=== PATIENT | female | born 1980 | race African-American/Black ===

== ENCOUNTER → 2017-01-29 | Outpatient (CLI) | payer MEDICAID | LOC: FIMAGING 12:47 | PROVIDERS: ATTEND Obstetrics & Gynecology | DX: O09.291 Supervision of pregnancy with other poor reproductive or obstetric history, first trimester (principal); O10.011 Pre-existing essential hypertension complicating pregnancy, first trimester; O24.111 Pre-existing type 2 diabetes mellitus, in pregnancy, first trimester; O99.211 Obesity complicating pregnancy, first trimester; Z87.59 Personal history of other complications of pregnancy, childbirth and the puerperium; Z3A.12 12 weeks gestation of pregnancy ==

== ENCOUNTER 2017-02-18 20:35 | Emergency (ER) | payer MEDICAID ==
[2017-02-18 20:47] VITALS: RESP 16; TEMP 98.4; O2SAT 98
--- NOTE | 2017-02-18 21:15 | EDPHY ---
H & P Stated Complaint: HTN 15 weeks Time Seen by Provider: 02/18/17 20:57 HPI/ROS: CHIEF COMPLAINT: High blood pressure, headache HISTORY OF PRESENT ILLNESS: This is a 36-year-old G11 P 4 SAB 6 who is 15 weeks . She has a history of hypertension and diabetes. She presents tonight concerned about headache and high blood pressure. She has been experiencing headache over the past 3 days. She describes it as global. She took Tylenol today and her headache is currently mild. She is taking Nifedipine ER 30 mg every morning for hypertension--she missed 1 dose 2 days ago. The today while experiencing headache she checked her blood pressure and it was 170/110. She is taking insulin for her diabetes which was diagnosed last year. Her blood sugars typically run 100-130. She has not noticed lower extremity edema. She denies recent fever, cough, shortness of breath. She has not had vaginal bleeding, cramping, or dysuria. Her purchasing specialist is Dr. Zoey Moore at [facility]. REVIEW OF SYSTEMS: A ten point review of systems was performed and is negative with the exception of the items mentioned in the HPI. 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 She is accompanied by her . - Physical Exam Exam: General Appearance: Alert. Vital signs reviewed. Heart rate 110, blood pressure 153/92 at triage. Eyes: Pupils equal and round, no conjunctival injection, no discharge. Anicteric. ENT, Mouth: Mucous membranes are moist, no oropharyngeal erythema or edema. Neck: No lymphadenopathy, supple. Respiratory: Lungs are clear to auscultation; no wheezes, rales, or rhonchi. Cardiovascular: Regular rate and rhythm; no murmur, rub, or gallop. Gastrointestinal: Abdomen is soft and nontender, gravid, no masses or organomegaly, bowel sounds normal. Skin: Warm and dry, no rashes on exposed skin, normal color. Back: Nontender to palpation over the thoracolumbar spine. No CVAT. Extremities: No lower extremity edema, no calf tenderness or swelling. Neurological: Alert and oriented. Moving all four extremities easily and equally. IRASEMA. EOMI. Facial expression symmetric. Tongue midline. Deep tendon reflexes are 2+ in the biceps and knees bilaterally. Psychiatric: Normal affect. Constitutional: Initial Vital Signs Temperature (C) 36.9 C 02/18/17 20:45 Heart Rate 110 H 02/18/17 20:45 Respiratory Rate 16 02/18/17 20:45 Blood Pressure 153/92 H 02/18/17 20:45 O2 Sat (%) 98 02/18/17 20:45 O2 Delivery Mode Room Air Allergies/Adverse Reactions: bee venom protein (honey bee) Allergy (Verified 02/18/17 20:44) lisinopril Allergy (Verified 02/18/17 20:44) losartan Allergy (Verified 02/18/17 20:44) red snapper Allergy (Uncoded 02/18/17 20:44) Home Medications: Medication Instructions Recorded Aspirin 02/18/17 FOLIC ACID 02/18/17 Fish Oil 02/18/17 Humulin N 02/18/17 Nifedipine 02/18/17 02/18/17 Tylenol 02/18/17 novoLOG 02/18/17 Medical Decision Making ED Course/Re-evaluation: Labs have been reviewed. Liver functions are normal. There is no protein in her urine. I would not expect preeclampsia at this stage of and physical exam is not suggestive of preeclampsia--no edema, normal deep tendon reflexes. heart tones 160s. At 10:15 p.m. she was re-examined. Her blood pressure is 118/72 now. Her headache is gone. I spoke with Dr. clay who agrees that no further emergency department care as needed. The patient will contact Dr. Donohue's office tomorrow morning to discuss possible adjustments in her blood pressure medication. Differential Diagnosis: I considered a differential diagnosis that includes but is not limited to uncontrolled essential hypertension, hypertensive urgency, hypertensive emergency, preeclampsia, HELLP. - Data Points Laboratory Results: Laboratory Results 02/18/17 21:30 02/18/17 21:30 02/18/17 02/18/17 02/18/17 21:30 21:30 20:50 WBC 7.13 10^3/uL 10^3/uL (3.80-9.50) RBC 4.54 10^6/uL 10^6/uL (4.18-5.33) Hgb 10.6 g/dL L g/dL (12.6-16.3) Hct 33.2 % L % (38.0-47.0) MCV 73.1 fL L fL (81.5-99.8) MCH 23.3 pg L pg (27.9-34.1) MCHC 31.9 g/dL L g/dL (32.4-36.7) RDW 13.2 % % (11.5-15.2) Plt Count 230 10^3/uL 10^3/uL (150-400) MPV 9.8 fL fL (8.7-11.7) Neut % (Auto) 60.8 % % (39.3-74.2) Lymph % (Auto) 31.1 % % (15.0-45.0) [place] % (Auto) 6.3 % % (4.5-13.0) Eos % (Auto) 1.0 % % (0.6-7.6) Baso % (Auto) 0.1 % L % (0.3-1.7) Nucleat RBC Rel Count 0.0 % % (0.0-0.2) Absolute Neuts (auto) 4.33 10^3/uL 10^3/uL (1.70-6.50) Absolute Lymphs (auto) 2.22 10^3/uL 10^3/uL (1.00-3.00) Absolute Monos (auto) 0.45 10^3/uL 10^3/uL (0.30-0.80) Absolute Eos (auto) 0.07 10^3/uL 10^3/uL (0.03-0.40) Absolute Basos (auto) 0.01 10^3/uL L 10^3/uL (0.02-0.10) Absolute Nucleated RBC 0.00 10^3/uL 10^3/uL (0-0.01) Immature Gran % 0.7 % % (0.0-1.1) Immature Gran # 0.05 10^3/uL 10^3/uL (0.00-0.10) Sodium 132 mEq/L L mEq/L (134-144) Potassium 3.9 mEq/L mEq/L (3.5-5.2) Chloride 101 mEq/L mEq/L (97-110) Carbon Dioxide 22 mEq/l mEq/l (22-31) Anion Gap 9 mEq/L mEq/L (8-16) BUN 8 mg/dL mg/dL (7-23) Creatinine 0.6 mg/dL mg/dL (0.6-1.0) Estimated GFR > 60 Glucose 108 mg/dL H mg/dL (70-100) Calcium 9.7 mg/dL mg/dL (8.5-10.4) Total Bilirubin 0.6 mg/dL mg/dL (0.1-1.4) Conjugated Bilirubin 0.4 mg/dL mg/dL (0.0-0.5) Unconjugated Bilirubin 0.2 mg/dL mg/dL (0.0-1.1) AST 10 IU/L L IU/L (14-46) ALT 21 IU/L IU/L (9-52) Alkaline Phosphatase 33 IU/L L IU/L (38-126) Total Protein 6.3 g/dL g/dL (6.3-8.2) Albumin 3.7 g/dL g/dL (3.5-5.0) Urine Color YELLOW Urine Appearance CLEAR Urine pH 7.0 (5.0-7.5) Ur Specific [place] 1.010 (1.002-1.030) Urine Protein NEGATIVE (NEGATIVE) Urine Ketones NEGATIVE (NEGATIVE) Urine Blood NEGATIVE (NEGATIVE) Urine Nitrate NEGATIVE (NEGATIVE) Urine Bilirubin NEGATIVE (NEGATIVE) Urine Urobilinogen NEGATIVE EU EU (0.2-1.0) Ur Leukocyte Esterase NEGATIVE (NEGATIVE) Urine RBC 1-3 /hpf /hpf (0-3) Urine WBC 1-3 /hpf /hpf (0-3) Ur Epithelial Cells TRACE /lpf /lpf (NONE-1+) Urine Bacteria TRACE /hpf H /hpf (NONE SEEN) Urine Mucus TRACE /lpf /lpf (NONE-1+) Urine Glucose NEGATIVE (NEGATIVE) Departure - Departure Disposition: Home, Routine, Self-Care Clinical Impression: Second trimester Hypertension Qualifiers: Hypertension type: essential hypertension Qualified Code(s): I10 - Essential ( primary) hypertension Condition: Good Instructions: Hypertension (ED) Additional Instructions: Call Dr. Donohue's office tomorrow morning--she might want to adjust your blood pressure medication. Check your blood pressure in the morning. Continue your prescribed medications. Return if you experience severe unremitting headache, any new or concerning symptoms. Referrals: Janae Scherer CNP [Primary Care Provider] - As per Instructions Brissa Donohue MD [Medical Doctor] - As per Instructions
[2017-02-18 21:23] LABS: BACTERIA TRACE /hpf (NONE SEEN); MUCUS TRACE /lpf (NONE-1+)
[2017-02-18 21:43] LABS: COLOR YELLOW; LEUKOCYTE ESTERASE,URINE NEGATIVE (NEGATIVE); NITRITE,URINE NEGATIVE (NEGATIVE)
[2017-02-18 21:49] LABS: % IMMATURE GRANULYOCYTES 0.7 % (0.0-1.1); ABSOLUTE IMMATURE GRANULOCYTES 0.05 10^3/uL (0.00-0.10); ADD DIFF? NO; ADD MORPH? NO; ADD SCAN? NO; ATYPICAL LYMPHOCYTE FLAG 0 (0-99); FRAGMENT RBC FLAG 0 (0-99); HEMATOCRIT 33.2 % (38.0-47.0); HEMOGLOBIN 10.6 g/dL (12.6-16.3); LEFT SHIFT FLG 10 (0-99); LIPEMIA HEMOLYSIS FLAG 80 (0-99); MEAN CELL HEMOGLOBIN 23.3 pg (27.9-34.1); MEAN CELL HEMOGLOBIN CONCENTR. 31.9 g/dL (32.4-36.7); MEAN CELL VOLUME 73.1 fL (81.5-99.8); MEAN PLATELET VOLUME 9.8 fL (8.7-11.7); PLATELET CLUMPS FLAG 0 (0-99); PLATELET COUNT 230 10^3/uL (150-400); RED BLOOD CELL COUNT 4.54 10^6/uL (4.18-5.33); RED CELL DISTRIBUTION WIDTH 13.2 % (11.5-15.2)
[2017-02-18 22:02] LABS: ALANINE AMINOTRANSFERASE 21 IU/L (9-52); ALBUMIN 3.7 g/dL (3.5-5.0); ALKALINE PHOSPHATASE 33 IU/L (38-126); ANION GAP 9 mEq/L (8-16); ASPARTATE AMINOTRANSFERASE 10 IU/L (14-46); BILIRUBIN,TOTAL 0.6 mg/dL (0.1-1.4); BILIRUBIN-CONJUGATED 0.4 mg/dL (0.0-0.5); BILIRUBIN-UNCONJUGATED 0.2 mg/dL (0.0-1.1); CALCIUM 9.7 mg/dL (8.5-10.4); CARBON DIOXIDE 22 mEq/l (22-31); CHLORIDE 101 mEq/L (97-110); CREATININE 0.6 mg/dL (0.6-1.0); GLOMERULAR FILTRATION RATE > 60; GLUCOSE 108 mg/dL (70-100); POTASSIUM 3.9 mEq/L (3.5-5.2); SODIUM 132 mEq/L (134-144); TOTAL PROTEIN 6.3 g/dL (6.3-8.2)
[2017-02-18 22:14] VITALS: BP 118/72; PULSE 97
== END 2017-02-18 22:40 | disposition home or self-care (01) ==
DX: O10.912 Unspecified pre-existing hypertension complicating pregnancy, second trimester (principal); E11.9 Type 2 diabetes mellitus without complications; Z3A.15 15 weeks gestation of pregnancy; Z79.4 Long term (current) use of insulin; Z79.82 Long term (current) use of aspirin

== ENCOUNTER → 2017-03-19 | Outpatient (CLI) | payer MEDICAID | LOC: FIMAGING 07:36 | PROVIDERS: ATTEND Obstetrics & Gynecology | DX: O10.012 Pre-existing essential hypertension complicating pregnancy, second trimester (principal); O24.112 Pre-existing type 2 diabetes mellitus, in pregnancy, second trimester; O26.22 Pregnancy care for patient with recurrent pregnancy loss, second trimester; O09.292 Supervision of pregnancy with other poor reproductive or obstetric history, second trimester; O09.522 Supervision of elderly multigravida, second trimester; O99.212 Obesity complicating pregnancy, second trimester; E11.9 Type 2 diabetes mellitus without complications; E66.9 Obesity, unspecified; Z79.4 Long term (current) use of insulin; Z3A.19 19 weeks gestation of pregnancy ==

== ENCOUNTER → 2017-04-16 | Outpatient (CLI) | payer MEDICAID | LOC: FIMAGING 08:25 | PROVIDERS: ATTEND Obstetrics & Gynecology | DX: O09.522 Supervision of elderly multigravida, second trimester (principal); O24.012 Pre-existing type 1 diabetes mellitus, in pregnancy, second trimester; Z3A.23 23 weeks gestation of pregnancy; O10.912 Unspecified pre-existing hypertension complicating pregnancy, second trimester; O09.292 Supervision of pregnancy with other poor reproductive or obstetric history, second trimester ==

== ENCOUNTER → 2017-05-14 | Outpatient (CLI) | payer MEDICAID | LOC: FIMAGING 08:39 | PROVIDERS: ATTEND Obstetrics & Gynecology | DX: O09.292 Supervision of pregnancy with other poor reproductive or obstetric history, second trimester (principal); O24.112 Pre-existing type 2 diabetes mellitus, in pregnancy, second trimester; O10.012 Pre-existing essential hypertension complicating pregnancy, second trimester; O09.522 Supervision of elderly multigravida, second trimester; E11.9 Type 2 diabetes mellitus without complications; Z79.4 Long term (current) use of insulin; Z3A.27 27 weeks gestation of pregnancy ==

== ENCOUNTER → 2017-06-17 | Outpatient (CLI) | payer MEDICAID | LOC: FIMAGING 14:42 | PROVIDERS: ATTEND Obstetrics & Gynecology | DX: O09.523 Supervision of elderly multigravida, third trimester (principal); O26.23 Pregnancy care for patient with recurrent pregnancy loss, third trimester; O10.913 Unspecified pre-existing hypertension complicating pregnancy, third trimester; O24.113 Pre-existing type 2 diabetes mellitus, in pregnancy, third trimester; Z3A.32 32 weeks gestation of pregnancy ==

== ENCOUNTER → 2017-07-11 | Outpatient (CLI) | payer MEDICAID | LOC: FIMAGING 14:32 | PROVIDERS: ATTEND Obstetrics & Gynecology | DX: O09.293 Supervision of pregnancy with other poor reproductive or obstetric history, third trimester (principal); O16.3 Unspecified maternal hypertension, third trimester; O09.523 Supervision of elderly multigravida, third trimester; O24.113 Pre-existing type 2 diabetes mellitus, in pregnancy, third trimester; Z3A.35 35 weeks gestation of pregnancy ==

== ENCOUNTER 2017-08-06 08:40 | Emergency (ER) | payer MEDICAID ==
--- NOTE | 2017-08-06 09:33 | EDPHY ---
HPI/HX/ROS/PE/MDM Narrative: CHIEF COMPLAINT: Hypertension HISTORY OF PRESENT ILLNESS: This patient is a 37 y/o female with history of diabetes and hypertension who underwent delivery 07/31/17. The was induced due to her medical history, and her prior pregnancies were induced as well. She was discharged the day following her procedure. During the , she treated her diabetes and hypertension with insulin and nifedipine (30mg). After discharge, she was not sure whether she was supposed to continue these medications, as she had been on amlodipine and Glipizide prior to the . Yesterday, she woke with swollen legs and fingers. She has had headaches over the last two days as well. She called her ob /analysis director yesterday who recommended she present to the emergency department to rule out post preeclampsia or other complications. No fever, chills, chest pain, shortness of breath, palpitations, vomiting, diarrhea, urinary complaints , lightheadedness. Not nursing. REVIEW OF SYSTEMS: Aside from elements discussed in the HPI, a comprehensive 10-point review of systems was reviewed and is negative. PAST MEDICAL HISTORY: 1. Diabetes (formerly Glipizide, insulin during ) 2. G11, P5 3. Hypertension (Nifedipine) SOCIAL HISTORY: . Lives in [place]. Works at [employer]. VITAL SIGNS: Reviewed by me. BP 153/92 GENERAL: Well-developed, well-nourished, resting comfortably in no respiratory distress. HEENT: Atraumatic. Eyes: No icterus, no injection. Mouth: moist mucous membranes. No erythema or lesions. Neck: supple with no adenopathy. No meningismus. LUNGS: Clear to auscultation bilaterally, no wheezes, rhonchi or rales. CARDIAC: Regular rate and rhythm, no rubs, murmurs or gallops. ABDOMEN: Well-healing incision. Soft, nontender, nondistended, bowel sounds normal. No RUQ pain. BACK: No CVA tenderness. EXTREMITIES: No trauma. Swollen ankles and fingers, no edema. Range of motion is normal throughout. NEURO: Alert and oriented, grossly nonfocal. No tremor. SKIN: Warm and dry, no rash. PSYCHIATRIC: Normal mentation, no agitation. Portions of this note were transcribed by a medical office technology instructor. I personally performed a history, physical exam, medical decision making, and confirmed accuracy of information the transcribed note. ED Course: 37 year old female with recent delivery 07/31/17 presents with headache , swollen extremities, and hypertension. Exam reveals swollen ankles and fingers , no edema. incision is well-healing, no signs of infection. Plan for labs including UA, CBC, chemistries, Plan to administer 30mg nifedipine. Patient's laboratory evaluation: Normal LFTs, normal uric acid, normal platelets. Urinalysis 1+ protein. Consulted initially with patient's cyber legal advisor at [facility]. As they no longer have admitting privileges at [facility], they asked that I contact the on-call OBGYN 11:[address] Pandya, shoe patternmaker. . Reviewed labs, history, and physical exam with Dr. Pandya. Noted 1+ protein in urine, may be due to hematuria. Dr. Pandya feels patient is safe to be discharged to home to continue her nifedipine. Most likely her pre-existing hypertension. Doubt preeclampsia at this time. We also discussed the fact that the patient's blood pressure has actually risen following the nifedipine. Current blood pressure is 172/108. 11:33 Reassessed patient. She reports feeling comfortable with the plan. Headache is the mild. No nausea or vomiting. Plan to discharge home in good condition. She will resume taking her nifedipine and insulin as prescribed. She understands she needs to follow up with shoe patternmaker this week for repeat laboratory studies. Return precautions discussed. She is comfortable with this plan. MDM: Differential diagnoses for the patient's symptom complex was considered including but not limited to essential hypertension, preeclampsia, medication withdrawal, anxiety, fluid overload. - Data Points Laboratory Results: Laboratory Results 08/06/17 09:55 08/06/17 09:55 Medications Given: Discontinued Medications Acetaminophen (Tylenol) 1,000 mg PO EDNOW ONE Stop: 08/06/17 11:15 Last Admin: 08/06/17 11:25 Dose: Not Given Nifedipine (Adalat Cc) 30 mg PO DAILY RENATA Stop: 02/02/18 09:44 Last Admin: 08/06/17 09:59 Dose: 30 mg General Time Seen by Provider: 08/06/17 09:19 Initial Vital Signs: Initial Vital Signs Temperature (C) 37.2 C 08/06/17 08:44 Heart Rate 83 08/06/17 08:44 Respiratory Rate 18 08/06/17 08:44 Blood Pressure 153/92 H 08/06/17 08:44 O2 Sat (%) 99 08/06/17 08:44 O2 Delivery Mode Room Air Allergies/Adverse Reactions: bee venom protein (honey bee) Allergy (Verified 08/06/17 08:43) lisinopril Allergy (Verified 08/06/17 08:43) losartan Allergy (Verified 08/06/17 08:43) red snapper Allergy (Uncoded 02/18/17 20:44) Home Medications: Medication Instructions Recorded Aspirin 02/18/17 FOLIC ACID 02/18/17 Fish Oil 02/18/17 Humulin N 02/18/17 Nifedipine 02/18/17 02/18/17 Tylenol 02/18/17 novoLOG 02/18/17 Departure - Departure Disposition: Home, Routine, Self-Care Clinical Impression: Hypertension Qualifiers: Hypertension type: unspecified Qualified Code(s): I10 - Essential (primary) hypertension Condition: Good Instructions: Hypertension (ED) Additional Instructions: 1. Follow up with your RUG BACKING STENCILER by the end of the week without fail for repeat laboratory studies. 2. Continue taking your insulin and nifedipine as prescribed. 3. Return to the emergency department for fever, chest pain, severe headache, increased swelling in your extremities, shortness of breath, severe abdominal pain, uncontrollable vomiting, unmanageable high blood pressure, or other worsening of condition. Referrals: Janae Scherer, CLINIC PHYSICIAN DIRECTOR [Primary Care Provider] - As per Instructions Report Scribed for: Tamiko Hummel Report Scribed by: Rimma Pina Date of Report: 08/06/17 Time of Report: 09:54
[2017-08-06] MEDS ORDERED: NIFEdipine ER 30 MG TAB PO SCH (09:45)
--- NOTE | 2017-08-06 09:58 | CPEKG ---
Heart Rate: 81 RR Interval: 741 P-R Interval: 148 QRSD Interval: 76 QT Interval: 396 QTC Interval: 460 P Colton: 39 QRS Colton: 15 T Wave Colton: 39 EKG Severity - NORMAL ECG - EKG Impression: SINUS RHYTHM Electronically Signed By: Mike Romero 08-Aug-2017 05:32:56
[2017-08-06 10:05] LABS: COLOR YELLOW; LEUKOCYTE ESTERASE,URINE NEGATIVE (NEGATIVE); NITRITE,URINE NEGATIVE (NEGATIVE)
[2017-08-06 10:07] LABS: % IMMATURE GRANULYOCYTES 1.1 % (0.0-1.1); ABSOLUTE IMMATURE GRANULOCYTES 0.06 10^3/uL (0.00-0.10); ADD DIFF? NO; ADD MORPH? NO; ADD SCAN? NO; ATYPICAL LYMPHOCYTE FLAG 10 (0-99); FRAGMENT RBC FLAG 0 (0-99); HEMATOCRIT 32.8 % (38.0-47.0); HEMOGLOBIN 10.4 g/dL (12.6-16.3); LEFT SHIFT FLG 0 (0-99); LIPEMIA HEMOLYSIS FLAG 80 (0-99); MEAN CELL HEMOGLOBIN 23.5 pg (27.9-34.1); MEAN CELL HEMOGLOBIN CONCENTR. 31.7 g/dL (32.4-36.7); MEAN PLATELET VOLUME 8.6 fL (8.7-11.7); PLATELET CLUMPS FLAG 0 (0-99); PLATELET COUNT 246 10^3/uL (150-400); RED BLOOD CELL COUNT 4.43 10^6/uL (4.18-5.33); RED CELL DISTRIBUTION WIDTH 14.8 % (11.5-15.2)
[2017-08-06 10:09] LABS: BACTERIA TRACE /hpf (NONE SEEN); MUCUS TRACE /lpf (NONE-1+); RBC,URINE 25-50 /hpf (0-3)
[2017-08-06 10:27] LABS: ALANINE AMINOTRANSFERASE 25 IU/L (9-52); ALBUMIN 3.3 g/dL (3.5-5.0); ALKALINE PHOSPHATASE 74 IU/L (38-126); ANION GAP 13 mEq/L (8-16); ASPARTATE AMINOTRANSFERASE 15 IU/L (14-46); BILIRUBIN,TOTAL 0.4 mg/dL (0.1-1.4); BILIRUBIN-CONJUGATED 0.1 mg/dL (0.0-0.5); BILIRUBIN-UNCONJUGATED 0.3 mg/dL (0.0-1.1); CALCIUM 9.1 mg/dL (8.5-10.4); CARBON DIOXIDE 25 mEq/l (22-31); CHLORIDE 108 mEq/L (97-110); CREATININE 0.7 mg/dL (0.6-1.0); GLOMERULAR FILTRATION RATE > 60; GLUCOSE 85 mg/dL (70-100); MAGNESIUM 1.5 mg/dL (1.6-2.3); POTASSIUM 4.2 mEq/L (3.5-5.2); SODIUM 146 mEq/L (134-144); TOTAL PROTEIN 6.1 g/dL (6.3-8.2)
[2017-08-06 10:51] VITALS: RESP 16
[2017-08-06] MEDS ORDERED: ACETAMINOPHEN 500 MG TAB PO ONE (11:14)
[2017-08-06 11:26] VITALS: PULSE 81
[2017-08-06 11:54] VITALS: BP 171/86; TEMP 97.5; O2SAT 97
== END 2017-08-06 11:53 | disposition home or self-care (01) ==
DX: I10 Essential (primary) hypertension (principal); E11.9 Type 2 diabetes mellitus without complications; Z79.4 Long term (current) use of insulin; Z79.82 Long term (current) use of aspirin